=== PATIENT | male | born 1995 | race Caucasian/White ===

== ENCOUNTER → 2017-11-13 16:27 | Outpatient (CLI) | payer OTHER ==
[~2017-11-13 16:27] MED LIST: GILTUSS TR TAB1 EACH PO; ZYRTEC10 MG PO
== END | disposition home or self-care (01) ==
LOC: PPHC 16:27
DX: J06.9 Acute upper respiratory infection, unspecified (principal); R05 Cough

== ENCOUNTER → 2017-11-17 07:35 | Outpatient (CLI) | payer OTHER | END | disposition home or self-care (01) | LOC: LAB 07:35 | DX: Z00.00 Encounter for general adult medical examination without abnormal findings (principal); R07.89 Other chest pain ==

== ENCOUNTER → 2017-11-17 07:49 | Outpatient (CLI) | payer OTHER | END | disposition home or self-care (01) | LOC: RAD 07:49 | DX: R05 Cough (principal) ==

== ENCOUNTER → 2017-11-23 16:04 | Outpatient (CLI) | payer OTHER ==
[~2017-11-23] VITALS: Ht 182.9 cm; Wt 108.9 kg
== END | disposition home or self-care (01) ==
LOC: PPHC 16:04
DX: R07.89 Other chest pain (principal)

== ENCOUNTER → 2017-11-30 | Outpatient (CLI) | payer OTHER | END | disposition home or self-care (01) | LOC: EKG 16:30 | DX: R07.89 Other chest pain (principal) ==

== ENCOUNTER → 2017-11-30 | Outpatient (CLI) | payer OTHER ==
[~2017-11-30] VITALS: Ht 182.9 cm; Wt 108.9 kg
== END | disposition home or self-care (01) ==
LOC: PPHC 16:50
DX: R07.89 Other chest pain (principal)

== ENCOUNTER → 2018-05-10 06:13 | Outpatient (CLI) | payer OTHER | END | disposition home or self-care (01) | LOC: LAB 06:13 | DX: R51 Headache (principal) ==

== ENCOUNTER 2018-11-27 09:13 | Outpatient (CLI) | payer OTHER | END 2018-11-27 09:24 | disposition home or self-care (01) | LOC: LAB 09:13 | DX: J11.1 Influenza due to unidentified influenza virus with other respiratory manifestations (principal); J20.0 Acute bronchitis due to Mycoplasma pneumoniae ==

== ENCOUNTER 2019-07-06 01:09 | Emergency (ER) | payer OTHER ==
[~2019-07-06] VITALS: Ht 185.4 cm; Wt 104.3 kg
== END 2019-07-06 04:13 | disposition home or self-care (01) ==
LOC: ER 01:09
DX: S19.89XA Other specified injuries of other specified part of neck, initial encounter (principal); V43.42XA Person boarding or alighting a car injured in collision with other type car, initial encounter; Y92.413 State road as the place of occurrence of the external cause; Y93.89 Activity, other specified; Y99.8 Other external cause status; M54.2 Cervicalgia

== ENCOUNTER → 2019-09-01 15:52 | Outpatient (CLI) | payer OTHER | END | disposition home or self-care (01) | LOC: LAB 15:52 | DX: R19.5 Other fecal abnormalities (principal); K29.00 Acute gastritis without bleeding ==

== ENCOUNTER → 2019-09-02 13:16 | Outpatient (CLI) | payer OTHER | END | disposition home or self-care (01) | LOC: LAB 13:16 | DX: R19.5 Other fecal abnormalities (principal); K29.00 Acute gastritis without bleeding ==

== ENCOUNTER 2019-11-20 16:20 | Emergency (ER) | payer OTHER ==
[~2019-11-20] VITALS: Ht 185.4 cm; Wt 127.0 kg
== END 2019-11-20 18:02 | disposition home or self-care (01) ==
LOC: ER 16:20
DX: R51 Headache (principal)

== ENCOUNTER 2020-01-01 17:42 | Outpatient (CLI) | payer OTHER | END 2020-01-01 17:53 | disposition home or self-care (01) | LOC: LAB 17:42 | DX: J11.1 Influenza due to unidentified influenza virus with other respiratory manifestations (principal) ==

== ENCOUNTER 2020-03-29 14:45 | Emergency (ER) | payer OTHER ==
[~2020-03-29] VITALS: Ht 188 cm; Wt 100.2 kg
== END 2020-03-29 16:41 | disposition home or self-care (01) ==
LOC: ER 14:45
DX: K58.8 Other irritable bowel syndrome (principal)

== ENCOUNTER → 2020-07-18 | Emergency (ER) | payer OTHER ==
[~2020-07-18] VITALS: Ht 185.4 cm; Wt 104.3 kg
== END | disposition left against medical advice (07) ==
LOC: ER 14:02
DX: Z53.20 Procedure and treatment not carried out because of patient's decision for unspecified reasons (principal)

== ENCOUNTER 2021-01-02 10:13 | Emergency (ER) | payer OTHER ==
[~2021-01-02] VITALS: Ht 185.4 cm; Wt 98.9 kg
[2021-01-02] MEDS ORDERED: ANALPRAM HC 2.530 GM RECTAL (19:44)
== END 2021-01-02 20:05 | disposition home or self-care (01) ==
LOC: ER 10:13
DX: B34.9 Viral infection, unspecified (principal); R10.13 Epigastric pain

== ENCOUNTER 2021-03-05 08:40 | Outpatient (CLI) | payer OTHER ==
[~2021-03-05 08:40] MED LIST changes: +ANALPRAM HC 2.530 GM RECTAL
== END 2021-03-05 08:45 | disposition home or self-care (01) ==
LOC: LAB 08:40
PROVIDERS: ATTEND Surgery
DX: R19.7 Diarrhea, unspecified (principal); R63.4 Abnormal weight loss; R19.4 Change in bowel habit; K92.1 Melena

== ENCOUNTER → 2021-03-07 14:03 | Outpatient (CLI) | payer OTHER | END | disposition home or self-care (01) | LOC: LAB 14:03 | PROVIDERS: ATTEND Surgery | DX: R19.7 Diarrhea, unspecified (principal); R63.4 Abnormal weight loss; R19.4 Change in bowel habit; K92.1 Melena ==

== ENCOUNTER 2021-03-15 10:00 | Day surgery (SDC) | payer OTHER | END 2021-03-15 15:40 | disposition home or self-care (01) | LOC: AMB-ENDOS 10:00 | PROVIDERS: ATTEND Surgery | DX: K62.89 Other specified diseases of anus and rectum (principal); Z20.822 Contact with and (suspected) exposure to COVID-19 ==

== ENCOUNTER 2021-06-28 14:31 | Emergency (ER) | payer OTHER ==
[~2021-06-28] VITALS: Ht 185.4 cm; Wt 94.3 kg
== END 2021-06-28 17:47 ==
LOC: ER 14:31
DX: R53.83 Other fatigue (principal)

== ENCOUNTER 2022-05-10 15:43 | Emergency (ER) | payer OTHER ==
[~2022-05-10] VITALS: Ht 185.4 cm; Wt 104.3 kg
== END 2022-05-10 18:48 | disposition home or self-care (01) ==
LOC: ER 15:43
DX: S99.811A Other specified injuries of right ankle, initial encounter (principal); S89.81XA Other specified injuries of right lower leg, initial encounter; X58.XXXA Exposure to other specified factors, initial encounter; Y93.67 Activity, basketball; Y92.89 Other specified places as the place of occurrence of the external cause

== ENCOUNTER 2022-11-17 17:45 | Emergency (ER) | payer OTHER ==
[~2022-11-17] VITALS: Ht 185.4 cm; Wt 98.9 kg
== END 2022-11-17 19:59 | disposition home or self-care (01) ==
LOC: ER 17:45
DX: S60.011A Contusion of right thumb without damage to nail, initial encounter (principal); X58.XXXA Exposure to other specified factors, initial encounter; Y93.9 Activity, unspecified; Y92.9 Unspecified place or not applicable; Y99.9 Unspecified external cause status

== ENCOUNTER 2022-12-06 13:21 | Outpatient (CLI) | payer OTHER | END 2022-12-06 13:25 | disposition home or self-care (01) | LOC: RAD 13:21 | PROVIDERS: ATTEND Orthopaedic Surgery | DX: S63 Dislocation and sprain of joints and ligaments at wrist and hand level (principal) ==

== ENCOUNTER 2024-10-06 15:37 | Emergency (ER) | payer OTHER ==
[~2024-10-06] VITALS: Ht 185.4 cm; Wt 104.3 kg
[2024-10-06 16:19] VITALS: BP 113/73; O2SAT 100
[2024-10-06] MEDS ORDERED: CEFTRIAXONE SODIUM 1,000 MG VIAL IM ONE (19:30)
[2024-10-06] MEDS ORDERED: TETANUS & DIPHTHERIA TOX,ADULT 0.5 ML VIAL IM ONE (19:30)
[2024-10-06] MEDS ORDERED: DUI500 PO (19:35)
== END 2024-10-06 19:49 | disposition home or self-care (01) ==
LOC: ER 15:39
DX: S60.410A Abrasion of right index finger, initial encounter (principal); W45.8XXA Other foreign body or object entering through skin, initial encounter; Y93.G3 Activity, cooking and baking; Y92.010 Kitchen of single-family (private) house as the place of occurrence of the external cause

== ENCOUNTER 2025-08-13 12:01 | Emergency (ER) | payer OTHER ==
[~2025-08-13] VITALS: Ht 185.4 cm; Wt 117.9 kg
[~2025-08-13 12:01] MED LIST changes: +DUI500 PO
[2025-08-13] MEDS ORDERED: ACETAMINOPHEN 500 MG GEL..CAP PO ONE (12:51)
[2025-08-13 16:24] LABS: BASO % 0.3 % (0.1-1.2); EOS # 0.02 (0.04-0.54); EOS % 0.1 % (0.7-7.0); LYMPH # 0.51 (1.18-3.74); LYMPH % 2.8 % (19.3-53.1); MEAN PLATELET VOLUME 10.00 fl (9.4-12.4); MONO # 1.26 (0.24-0.82); MONO % 6.8 % (4.7-12.5); NEUT # 16.48 (1.56-6.13); NEUT % 89.6 % (34.0-71.1); RED CELL DISTRIBUTION WIDTH 11.4 % (11.6-14.4)
[2025-08-13 16:55] LABS: COVID-19 AG NEGATIVE (NEGATIVE)
[2025-08-13] MEDS ORDERED: GILTUSS COUGH-118 M1 PO (17:24)
[2025-08-13] MEDS ORDERED: AZITHROMYCIN500 MG PO (17:24)
[2025-08-13] MEDS ORDERED: ACETAMINOPHEN500 M1 PO (17:24)
== END 2025-08-13 18:07 | disposition home or self-care (01) ==
LOC: ER 12:02
PROVIDERS: Preventive Medicine Public Health & General Preventive Medicine
DX: J06.9 Acute upper respiratory infection, unspecified (principal); H83.09 Labyrinthitis, unspecified ear; J45.909 Unspecified asthma, uncomplicated; Z20.822 Contact with and (suspected) exposure to COVID-19